=== PATIENT | male | born 1990 | race Hispanic/Latino ===

== ENCOUNTER 2017-06-29 20:06 | Inpatient (IN) | payer MEDICAID ==
[2017-06-29 20:16] VITALS: O2SAT 99
--- NOTE | 2017-06-29 20:22 | ED PDOC ---
Psych Transfer Clearance - Clearance Statement Clearance Statement: Reviewed vital signs, lab results and transfer papers. Patient clinically stable for psychiatric admission. accepted by Dr. Olguin.
[2017-06-29] MEDS ORDERED: DiphenhydrAMINE 50 mg/ml Inj IM PRN (20:41)
[2017-06-29] MEDS ORDERED: Magnesium Hydroxide Susp 30 ml UD PO PRN (20:41)
[2017-06-29] MEDS ORDERED: Alum-Mag Hydrox-Simethicone Susp (30 mL) PO PRN (20:41)
--- NOTE | 2017-06-29 21:48 | PCM.BM ---
<Dylan Chavez Justo - Last Filed: 06/29/17 21:47> Treatment Plan Problems - Problems identified on initial assessmt Anxiety Date Initiated: 06/29/17 Time Initiated: 21:47 Assessment reference: NA Status: Active Hopelessness/helplessness Date Initiated: 06/29/17 Time Initiated: 21:47 Assessment reference: NA Status: Active Treatment assets and liabiliti Patient Assests: cooperative, educated, motivated, physically healthy, negotiates basic needs, cognitively intact Patient Liabilities: financial problems - Milieu Protocol Maintain good personal hygiene: daily Encourage regular showers, daily Remind patient to perform daily oral care Conduct patient checks and document Observation sheet: Q15 minutes Maintain personal safety: every shift Educate patient to report safety concerns to staff, every shift Monitor environment for contraband/sharps Medication safety: Monitor for expected outcome, potential side effects: every shift, Assess barriers to learning: every shift, Assess readiness for medication education: every shift <Anushka Alba - Last Filed: 07/02/17 16:48> Treatment assets and liabiliti Patient Assests: adapts well, cooperative, educated, insightful, motivated, resourceful, self-reliant, ADL independent, physically healthy, good support system, negotiates basic needs, good past tx response, cognitively intact Patient Liabilities: financial problems, other (recent move) Family Contact Family involvement: Family/SO is involved Family contact: Patient agrees to contact, Family has been contacted by patient , Telephone contact initiated by staff Family contact name: Alexa(girlfriend) [phone] Family contacted how many times per week?: 2 Family contact comment: [employer] provided psychoeducation regarding nature of tx provided on 3 and clinical updates regarding pts progress and discharge planning. [employer] notified pts girlfriend that [facility] staff will inform pt of all necessary documents to file for [place] Medicaid and close Medicaid case in [place]. [facility] Care office will assist pt with application. [employer] explained that a referral has been faxed to [facility] for outpatient mental health services. If patient is not eligible for outpatient services prior to transferring benefits to [place], a list of outpatient mental health providers and local meetings to be provided. Pts girlfriend expressed understanding of the above and denied having any concerns regarding pts anticipated discharge of . [employer] to contact Alexa on 07/02 to schedule pick-up time. - Goals for Treatment Patient goals for treatment: Patient to continue stabilization on 3NP through medication management and group/supportive therapy. Patient to be encouraged to attend groups regularly to promote self-awareness, sobriety, and improve insight , coping skills and self-esteem. Patient to be provided with referral for appropriate level of aftercare to reduce risk of future hospitalizations and ensure safety in the community. Discharge/Continuing Care - Education Needs Education Needs: Family Medication, Family Coping Skills, Family Community resources, Family Aftercare Safety Plan, Patient Medication, Patient Coping Skills, Patient Community resources, Patient Aftercare Safety Plan - Discharge Discharge Criteria: Tolerates medication w/o severe side effects, Free of Suicidal thoughts, Normal sleep pattern, Ability to care for self, Reduction of target symptoms Discharge to:: Home, Other (with girlfriend and her family) - Treatment Team Participation Patient/Family/SO Statement: 07/02/17 16:48 Pt. AOX4 with depressed affect and good eye contact. Thoughts are clear and connected. Speech: normal rate and tone. Pt. well-groomed with fair ADLs. Insight fair/coping skills/judgment fair. Pt. reports remorse and guilt regarding thoughts to relapse. Pt. somewhat socially withdrawn but visible on 3NP. Pt. denies SI/HI and is able to contract for safety on 3NP. Pt. goal oriented and expresses being motivated to return to [facility] upon discharge to work on maintaining sobriety .Pt. to be provided with referral for appropriate level of aftercare. Pt. to be provided with referral for appropriate level of aftercare. Discussed with Family/SO: Yes
[2017-06-30 08:29] LABS: HEMOGLOBIN 13.6 g/dL (12.0-18.0); MEAN CELL VOLUME 91.3 fl (80.0-94.0); MEAN CORPUSCULAR HEMOGLOBIN 31.5 pg (27.0-31.0); MEAN CORPUSCULAR HGB CONC 34.5 g/dL (33.0-37.0); RBC 4.31 Mil/uL (4.40-5.90); RED CELL DISTRIBUTION WIDTH 12.7 % (11.5-14.5); WHITE BLOOD COUNT 3.7 K/uL (4.8-10.8)
[2017-06-30 08:32] LABS: ALB/GLOB RATIO 1.4 (1.0-2.1); ALBUMIN 3.7 g/dL (3.5-5.0); ALT/SGPT 32 U/L (21-72); AST/SGOT 25 U/L (17-59); BLOOD UREA NITROGEN 11 mg/dl (9-20); CALCIUM 9.3 mg/dL (8.4-10.2); GFR AFRICAN-AMERICAN > 60; GFR NON-AFRICAN AMERICAN > 60; HDL CHOLESTEROL 79 MG/DL (30-70)
[2017-06-30 08:42] LABS: LDL CHOLESTEROL 79 mg/dL (0-129)
[2017-06-30] MEDS ORDERED: Influenza Vaccine 18yr & older 0.5 ML/45 MCG SYR IM ONE (09:00)
--- NOTE | 2017-06-30 14:53 | PCM.PSYCH ---
Initial Psychiatric Evaluation - Initial Psychiatric Evaluation Type of Admission: Voluntary Legal Status: Capacity Chief Complaint (in patient's own words): I was feeling anxious and uncomfortable Patient's Reaction to Hospitalization: pt requested help History of Present Illness and Precipitating Events: pt with previous psychiatric diagnosis of depressiona nd opiate use disorder in full sustained remission since 2009, pt currently not [facility] , moved from [place] to [place] a month ago to be with his girl friend pt stated has been feeling increasingly anxious and overwhelmed as he has a degree in Biology but only able to find a job in a [employer]), pt also has been having difficulty due to lack of friends and social support, was feeling increasingly anxious, got benzodiazepins from the internet , he also started to have thoughts and cravings to use opiates, he notified his girl friend and she brought him to ER pt reported feeling depressed ,anxious , denied any current suicidal or homicidal ideations on the unit Current Medications: Active Medications Generic Name Dose Route Start Last Admin Trade Name Freq PRN Reason Stop Dose Admin Acetaminophen 650 mg 06/29/17 20:41 Tylenol 325mg Tab PO Q4 PRN pain level 4-7 Al Hydrox/Mg Hydrox/Simethicone 30 ml 06/29/17 20:41 Maalox Plus 30 Ml PO Q4 PRN Dyspepsia Diphenhydramine HCl 50 mg 06/29/17 20:41 Benadryl IM Q6 PRN Extrapyramidal S/S Unable PO Diphenhydramine HCl 50 mg 06/29/17 20:41 Benadryl PO Q6 PRN Extrapyramidal Symptoms Diphenhydramine HCl 50 mg 06/29/17 20:44 06/29/17 21:27 Benadryl PO 50 mg HS PRN Administration Sleep Escitalopram Oxalate 5 mg 06/30/17 11:30 06/30/17 12:02 Lexapro PO 5 mg DAILY ADOLFO Administration Haloperidol 5 mg 06/29/17 20:41 Haldol PO Q4 PRN Agitation Haloperidol Lactate 5 mg 06/29/17 20:41 Haldol IM Q4 PRN Agitation, Unable to Take PO Hydroxyzine Pamoate 25 mg 06/30/17 11:20 Vistaril PO TID PRN Anxiety Lorazepam 2 mg 06/29/17 20:41 Ativan IM Q4 PRN Anxiety/Agitation,Unable PO Magnesium Hydroxide 30 ml 06/29/17 20:41 Milk Of Magnesia PO HS PRN Constipation Nicotine 1 patch 07/01/17 09:00 Nicoderm Cq TD DAILY ADOLFO Past Psychiatric History - Past Psychiatric History Explanation of prior treatment: history of one hospitalization 2009 in [place], for opiate use, was on suboxone maintenance for two years, History of ETOH/Drug Use: current cannabis use , last use two months ago History of Family Illness: denied Pertinent Medical Hx (Current Medical&Sleep Prob, Allergies): Allergies Allergy/AdvReac Type Severity Reaction Status Date / Time No Known Allergies Allergy Verified 06/29/17 20:10 Mental Status Examination - Personal Presentation Personal Presentation: Looks stated age Additional comments: guarded evasive - Affect Affect: Constricted, Depressed - Motor Activity Motor Activity: Psychomotor Retardation - Reliability in Providing Information Reliability in Providing Information: Fair - Speech Speech: Relevant - Mood Mood: Depressed, Anxious - Formal Thought Process Formal Thought Process: Circumstantial - Hallucinations/Delusions Additional comments: pt denied perceptual disturbances, non ellicited - Obsessions/Compulsions Obsessions: No Compulsions: No - Cognitive Functions Orientation: Person, Place, Situation Sensorium: Alert Attention/Concentration: Attentive Abstract Thinking: [place] Estimate of Intelligence: Average - Risk Risk: Diminished functioning - Strength & Assets Inventory Strength & Assets Inventory: Education, Employment history - Limitations Additional comments: moving from [place], poor social support DSM 5 DX - DSM 5 DSM 5 Diagnosis: generalized anxiety disorder adjustment disorder with depressed mood cannabis abuse - Recommended/Plan of Treatment Treatment Recommendations and Plan of Treatment: lexapro 5mg daily CBT group and supportive therapy
--- NOTE | 2017-06-30 15:16 | CP.PCM.CON ---
History of Present Illness - History of Present Illness History of Present Illness: Reason for Consult: Per hospital protocol HPI: 26 year old male no PMH admitted to psych after buying benzodiazepines online, and wanted to hurt himself. His girlfriend brought him to the ED for help. No other complaints at this time. NAD. HD stable. ROS: Per HPI, all other systems reviewed and neg PMH: denies PSH: denies FH: denies SH: denies tobacco, ETOH, IVDU NKDA Vitals Reviewed GEN: WDWN, ALERT, COOPERATIVE HEENT: NCAT, PERRL, EOMI HEART: RRR, +S1S2, NO MRG LUNG: CTAB, NO WRR ABD: SOFT, NT, ND, NO HSM, NO MASSES EXT: NORMAL PEDAL PULSES, GOOD CAPILLARY REFILL NEURO: AAOX3, STRENGTH EQUAL BILATERAL UPPER AND LOWER EXTREMITIES SKIN: WARM, DRY PSYCH: NORMAL MOOD, NORMAL AFFECT ASSESSMENT AND PLAN 26 year old male no PMH admitted to psych after buying benzodiazepines online, and wanted to hurt himself. His girlfriend brought him to the ED for help. No other complaints at this time. NAD. HD stable. Suicidal Ideation management per psych Past Patient History - PSYCHIATRIC Hx Substance Use: Yes (smoke MJ.last use 1 month ago.) Meds Allergies/Adverse Reactions: Allergies Allergy/AdvReac Type Severity Reaction Status Date / Time No Known Allergies Allergy Verified 06/29/17 20:10 - Medications Medications: Current Medications Acetaminophen (Tylenol 325mg Tab) 650 mg PO Q4 PRN PRN Reason: pain level 4-7 Al Hydrox/Mg Hydrox/Simethicone (Maalox Plus 30 Ml) 30 ml PO Q4 PRN PRN Reason: Dyspepsia Diphenhydramine HCl (Benadryl) 50 mg IM Q6 PRN PRN Reason: Extrapyramidal S/S Unable PO Diphenhydramine HCl (Benadryl) 50 mg PO Q6 PRN PRN Reason: Extrapyramidal Symptoms Diphenhydramine HCl (Benadryl) 50 mg PO HS PRN PRN Reason: Sleep Last Admin: 06/29/17 21:27 Dose: 50 mg Escitalopram Oxalate (Lexapro) 5 mg PO DAILY ADOLFO Last Admin: 06/30/17 12:02 Dose: 5 mg Haloperidol (Haldol) 5 mg PO Q4 PRN PRN Reason: Agitation Haloperidol Lactate (Haldol) 5 mg IM Q4 PRN PRN Reason: Agitation, Unable to Take PO Hydroxyzine Pamoate (Vistaril) 25 mg PO TID PRN PRN Reason: Anxiety Lorazepam (Ativan) 2 mg IM Q4 PRN PRN Reason: Anxiety/Agitation,Unable PO Magnesium Hydroxide (Milk Of Magnesia) 30 ml PO HS PRN PRN Reason: Constipation Nicotine (Nicoderm Cq) 1 patch TD DAILY ADOLFO Results - Vital Signs Recent Vital Signs: Last Vital Signs Temp 97.2 F L 06/30/17 09:00 Pulse 68 06/30/17 09:00 Resp 18 06/30/17 09:00 BP 118/69 06/30/17 09:00 Pulse Ox 99 06/29/17 21:13 - Labs Result Diagrams: 06/30/17 08:07 06/30/17 08:07 Labs: Laboratory Results - last 24 hr 06/30/17 06/30/17 06/30/17 08:07 08:07 08:07 WBC 3.7 L RBC 4.31 L Hgb 13.6 Hct 39.4 MCV 91.3 MCH 31.5 H MCHC 34.5 RDW 12.7 Plt Count 149 Sodium 141 Potassium 3.5 L Chloride 102 Carbon Dioxide 26 Anion Gap 17 BUN 11 Creatinine 1.0 Est GFR ( Amer) > 60 Est GFR (Non-Af Amer) > 60 Random Glucose 92 Hemoglobin A1c 5.1 Calcium 9.3 Total Bilirubin 0.8 AST 25 ALT 32 Alkaline Phosphatase 42 Total Protein 6.3 Albumin 3.7 Globulin 2.6 Albumin/Globulin Ratio 1.4 Triglycerides 80 Cholesterol 180 LDL Cholesterol Direct 79 HDL Cholesterol 79 H Thyroxine (T4) 4.20 L TSH 3rd Generation 0.33 L
[2017-07-01 09:07] VITALS: RESP 18
[2017-07-01] MEDS ORDERED: Influenza Vaccine 18yr & older 0.5 ML/45 MCG SYR IM ONE (12:04)
--- NOTE | 2017-07-01 14:49 | PCM.PYCHPN ---
Psychiatric Progress Note - Psychiatric Progress Note Patient seen today, length of contact: pt evaluated discussed with team chart reviewed Patient Chief Complaint: I know I have to attend meetings Problems Identified/Issues Discussed: pt evaluated ,reported feeling less anxious and less depressed, pt showing insight into his illness , reported he understands he needs to attend NA meetings to help with opiate cravings, discussed with pt the possibility of starting vivitrol injections to help with the cravings pt denied any current suicidal or homicidal ideations, denied perceptual disturbances attending groups, no reported side effects of medications Medical Problems: history of one hospitalization 2009 in [place], for opiate use, was on suboxone maintenance for two years, DSM 5 Symptoms Update: generalized anxiety disorder opiate use disorder in full sustained remission depression Medication Change: No Medical Record Reviewed: Yes Mental Status Examination - Cognitive Function Orientation: Person, Place, Situation Attention: WNL Concentration: WNL Association: WNL Fund of Knowledge: [facility] Decription of patient's judgement and insights: fair insight and judgement - Mood Mood: Depressed, Anxious - Affect Affect: Constricted, Depressed - Formal Thought Process Formal Thought Process: Circumstantial Psychotic Thoughts and Behaviors: no reported psychotic symptoms, non elicited - Suicidal Ideation Suicidal Ideation: No - Homicidal Ideation Homicidal Ideation: No Goal/Treatment Plan - Goal/Treatment Plan Need for Continued Stay: Severe depression anxiety, Discharge may exacerbated symptoms Progress Toward Problem(s) and Goals/Treatment Plan: lexapro 5mg daily CBT group and supportive therapy referral to NA meeting on discharge
[2017-07-02 08:57] VITALS: BP 123/61; PULSE 69; TEMP 97.9
--- NOTE | 2017-07-02 12:16 | PCM.PYCHDC ---
Mental Status Examination - Mental Status Examination Orientation: Person, Place Memory: Intact Mood: Neutral Affect: Broad Speech: Appropriate Attention: WNL Concentration: WNL Association: WNL Formal Thought Process: No Impairment Description of patient's judgement and insight: fair insight and judgement Psychotic Thoughts and Behaviors: no reported psychotic symptoms, non elicited Suicidal Ideation: No Current Homicidal Ideation?: No Discharge Summary - Discharge Note Reason for Hospitalization: pt with previous psychiatric diagnosis of depressiona nd opiate use disorder in full sustained remission since 2009, pt currently not [facility] , moved from [place] to [place] a month ago to be with his girl friend pt stated has been feeling increasingly anxious and overwhelmed as he has a degree in Biology but only able to find a job in a [employer], pt also has been having difficulty due to lack of friends and social support, was feeling increasingly anxious, got benzodiazepins from the internet , he also started to have thoughts and cravings to use opiates, he notified his girl friend and she brought him to ER pt reported feeling depressed ,anxious , denied any current suicidal or homicidal ideations on the unit Consultations:: List each consultation separately and include: 1. Reason for request. 2. Findings. 3. Follow-up Summary of Hospital Course include:: 1. Description of specific treatment plan utilized for patients during their course of treatmen. 2. Summarize the time- course for resolution of acute symptoms and/or regressed behaviors. 3. Describe issues identified and worked on during hospitalization. 4. Describe medication utilized. 5. Describe medical problems identified and treated. 6. Reassessment of suicide risk Summary of Hospital Course: pt on admission was started on lexapro 5mg daily vistaril as prn for anxiety, Group, motivational and supportive therapy provided, pt was compliant with treatment, no reported side effects of medications discussed with pt possibility of starting on vivitrol injections for opiate withdrawal, and attending NA meetings on discharge on discharge, pt mental status was stable, denied any current suicidal or homicidal ideations - Final Diagnosis (DSM 5) Condition upon Discharge: FAIR DSM 5: generalized anxiety disorder opiate use disorder in full sustained remission Disposition: HOME/ ROUTINE Follow-up Treatment Plan: lexapro 5mg daily CBT group and supportive therapy referral to NA meeting on discharge Prescriptions/Medication Reconciliation: Escitalopram [Lexapro] 5 mg PO DAILY 30 Days #30 tab hydrOXYzine Pamoate [Vistaril] 25 mg PO TID PRN 30 Days #90 cap PRN Reason: Anxiety - Smoking Cessation Smoking Cessation Medication prescribed: No - Antipsychotic Medications Pt discharged on 2 or more routine antipsychotic medications: No
== END 2017-07-02 16:00 | disposition home or self-care (01) | DRG 425 ==
LOC: H.ER 20:06 → H.PSYCH 20:21
PROVIDERS: ADMIT Psychiatry & Neurology Psychiatry; ATTEND Psychiatry & Neurology Psychiatry
PROC: GZHZZZZ Group Psychotherapy (ICD-10-PCS; principal; 2017-06-29)
PROC: HZ57ZZZ Individual Psychotherapy for Substance Abuse Treatment, Motivational Enhancement (ICD-10-PCS; 2017-06-29)
PROC: HZ59ZZZ Individual Psychotherapy for Substance Abuse Treatment, Supportive (ICD-10-PCS; 2017-06-29)
DX: F41.1 Generalized anxiety disorder (principal); R45.851 Suicidal ideations; F12.10 Cannabis abuse, uncomplicated; Z23 Encounter for immunization